=== PATIENT | female | born 1960 | race Caucasian/White ===

== ENCOUNTER → 2017-05-29 08:12 | Outpatient (CLI) | payer OTHER, SELFPAY ==
--- NOTE | 2017-05-29 08:20 | RAD_ITS ---
STUDY: X-RAY - ESOPHAGUS (BARIUM SWALLOW) WITH FLUOROSCOPY REASON FOR EXAM: Female, 56 years old. Dysphasia. TECHNIQUE: 14 view(s) of the esophagus were obtained following swallowing of barium. FLUOROSCOPY TIME (if supplied): (0:37) minutes/seconds COMPARISON: None. FINDINGS: There is no demonstrated esophageal foreign body. There is no demonstrated stricture or mucosal abnormality. Normal gastroesophageal junction, without a demonstrated hiatal hernia. The patient ingested a 12 mm tablet of barium without any difficulty. Normal visualized aortic arch and descending thoracic aorta. Normal visualized pulmonary parenchyma. Normal visualized osseous structures of the thorax. RAD/Esophagus Only IMPRESSION: Normal plain film x-ray examination (barium swallow) of the esophagus. Electronically Signed: Aiden Arriaga MD at 9:05 EDT Tel [phone], Service support ,
== END ==
PROVIDERS: Family Provider Student in an Organized Health Care Education/Training Program; PCP Student in an Organized Health Care Education/Training Program; Visit Provider Internal Medicine Gastroenterology
DX: R13.14 Dysphagia, pharyngoesophageal phase (principal)
CPT/HCPCS: 74220

== ENCOUNTER → 2017-05-30 12:53 | Outpatient (CLI) | payer OTHER, SELFPAY ==
--- NOTE | 2017-05-30 12:55 | RAD_ITS ---
STUDY: SWALLOWING STUDY REASON FOR EXAM: Female, 56 years old. Dysphagia. TECHNIQUE: The examination was performed with Speech Pathology in attendance. Under fluoroscopic observation, the patient ingested thin barium, thick barium, barium pudding, and barium coated cracker. FLUOROSCOPY TIME: 1:25 minutes/seconds. 1261 spot images were obtained. RADIOLOGIST INVOLVEMENT: Radiologist was present and providing direct supervision. COMPARISON: None. FINDINGS: The following was observed during swallowing of the various mixtures of barium: Thin Barium: There was no evidence of aspiration or laryngeal penetration. Barium Pudding: There was no evidence of aspiration or laryngeal penetration. Barium Coated Cracker: There was no evidence of aspiration or laryngeal penetration. RAD/Swallowing Function w/Video IMPRESSION: Normal tailored barium swallow study. No evidence of increased risk for aspiration. The swallow study findings were discussed with the patient by the speech pathologist at the conclusion of the examination. Please see speech pathology report for more information and recommendations. Electronically Signed: Aiden Arriaga MD at 14:00 EDT Tel [phone], Service support ,
--- NOTE | 2017-05-30 13:00 | SP.MBSS_ITS ---
PRIMARY / SECONDARY DIAGNOSIS: dysphagia (R13.10) REFERRING PHYSICIAN: Dr. Ko Alvarez MD CURRENT DIET: regular textures, thin liquids DENTITION: WFL MENTAL STATUS: WNL RESPIRATORY STATUS: O2 via room air PREVIOUS MODIFIED BARIUM SWALLOW STUDY: none REASON FOR REFERRAL: Patient is a 56 year old female referred for a modified barium swallow (MBS) study to objectively assess the Patients oropharyngeal swallow function under fluoroscopy secondary to reported coughing episodes occurring 6 times across a 2 year span, with the Patient reporting occurrences primarily during intake of thin liquids with larger bolus volumes and limited attention, in addition to concerns regarding vapors as an exacerbating factor (examples provided included Jelly on a spoon, Root Beer, Dr. Suárez). Patient reports recent endoscopy completed with no abnormalities reported. Patient reports use of C-pap (for a long time), reports the back of throat has become intermittently irritated over last year, reports additional workup with CHECK EXAMINER-C. 05/29/2017 barium swallow study revealed a normal plain film x-ray examination (barium swallow) of the esophagus. MEDICAL HISTORY: Esophageal reflux, allergic rhinitis, hyperlipidemia, brachial neuritis or radiculitis, panic attacks, depressive disorder, metatarsalgia, sleep apnea, morbid obesity, type II diabetes mellitus, gait difficulty. STUDY FINDINGS: Patient participated in a Modified Barium Swallow (MBS) study on 05/30/2017. Dr. Arriaga was the radiologist present for this evaluation. This study was recorded in the lateral view and images were sent to PACs for storage. The following consistencies were presented to this patient for analysis of oropharyngeal swallow function: thin liquids, pudding, and a regular textured, Gela Doone cookie. Results of the MBS are as follows: PENETRATION / ASPIRATION SCALE (NAJERA): 1 = does not enter airway 2 = enters airway/above vocal folds/ejected 3 = enters airway/above vocal folds/not ejected 4 = enters airway/contacts vocal folds/ejected 5 = enters airway/contacts vocal folds/not ejected 6 = enters airway/below vocal folds/ejected 7 = enters airway/below vocal folds/not ejected despite effort 8 = enters airway/below vocal folds/no effort PENETRATION / ASPIRATION SCALE (SCORE): Thin liquids via cup (sequential swallows): 1 Thin liquids via cup (sequential swallows): 1 Thin liquids via straw (single sip): 1 Thin liquids via straw (single sip): 1 Thin liquids via straw (sequential swallows): 1 Pudding via spoon: 1 Regular textured cookie: 1 IMPRESSION: DIAGNOSIS: swallow function grossly within functional limits ORAL PHASE CHARACTERIZED BY: LABIAL SEAL: no labial escape TONGUE CONTROL DURING BOLUS MANIPULATION: cohesive bolus between tongue to palatal seal BOLUS PREPARATION / MASTICATION: timely and efficient chewing and mashing BOLUS TRANSPORT / LINGUAL MOTION: brisk tongue motion ORAL RESIDUE: intermittent trace residue lining oral structures PHARYNGEAL PHASE CHARACTERIZED BY: INITIATION OF PHARYNGEAL SWALLOW: bolus head in valleculae at first hyoid excursion SOFT PALATE ELEVATION: no bolus between soft palate and pharyngeal wall LARYNGEAL ELEVATION: complete superior movement of thyroid cartilage with complete approximation of arytenoids cartilage to epiglottic petiole ANTERIOR HYOID EXCURSION: complete anterior movement EPIGLOTTIC MOVEMENT: complete epiglottic inversion LARYNGEAL VESTIBULE CLOSURE AT HEIGHT OF SWALLOW: complete laryngeal vestibule closure with no air/contrast in laryngeal vestibule PHARYNGEAL STRIPPING WAVE: pharyngeal stripping wave present / complete PHARYNGOESOPHAGEAL SEGMENT OPENING: complete distension and complete duration with no obstruction of flow TONGUE BASE RETRACTION: no contrast between tongue base and posterior pharyngeal wall PHARYNGEAL RESIDUE: intermittent trace residue within or on pharyngeal structures ESOPHAGEAL PHASE CHARACTERIZED BY: ESOPHAGEAL BOLUS CLEARANCE IN THE UPRIGHT POSITION: could not view DIET TEXTURE RECOMMENDATIONS: Will recommend a regular textured, thin liquid diet. COMPENSATORY STRATEGIES RECOMMENDED: Reduced bolus volume, seated upright at 90 degrees during PO intake, remain upright for 30-60 minutes post meal (GERD precaution) INTERPRETATION OF RESULTS: The Patient presents with mastication and deglutition abilities found to be grossly within normal limits. Would consider issues with PO intolerance described by the Patient to be transient in nature, associated with volume overload, with no systemic dysphagia suspected based on objective results and reports provided by the Patient. RECOMMENDATIONS: Patient able to comprehend and express recommended intake precautions detailed above with sufficient detail to suggest high likelihood of compliance. Provided brief overview of signs and symptoms of aspiration, with recommendations for the Patient to further discuss symptoms with PCP. No further skilled speech- language services warranted at this time targeting dysphagia. ADDITIONAL COMMENTS/RECOMMENDATIONS: Results and recommendations were discussed with the Patient immediately following MBS completion, with the Patient verbalizing understanding and agreement with all recommendations and education provided. IMAGE COUNT: 1261 G-CODES: SWALLOWING G8996 Current Status: CH SWALLOWING G8997 Goal Status: CH SWALLOWING G8998 Discharge Status: CH
== END ==
PROVIDERS: Family Provider Student in an Organized Health Care Education/Training Program; PCP Student in an Organized Health Care Education/Training Program; Visit Provider Internal Medicine Gastroenterology
DX: R13.14 Dysphagia, pharyngoesophageal phase (principal)
CPT/HCPCS: 74230; 92611

== ENCOUNTER → 2018-10-02 07:40 | Outpatient (CLI) | payer OTHER, SELFPAY ==
--- NOTE | 2018-10-02 07:44 | BI_ITS ---
MAMMOGRAPHY - BILATERAL SCREENING REASON FOR EXAM: Female, 58 years old. Routine annual screening examination. PERTINENT HISTORY: Non-contributory. TECHNIQUE: Digital bilateral breast syeda (3D mammographic acquisition) in the CC and MLO projections. 2-D mediolateral oblique (MLO) and craniocaudad (CC) views of both breasts were obtained. CAD: Full Field Digital Mammography with Computer Added Detection was performed. COMPARISON: Comparison is made with prior study dated August 01, 2016 and July 06, 2015. FINDINGS: Breast Composition: The breasts are heterogeneously dense, which may obscure small masses. There are no dominant masses or suspicious calcifications. No other significant abnormalities are identified. There has been no significant change since the prior study. BI/SCREEN MAMM (CAD) W/SYEDA BILAT IMPRESSION: Stable bilateral screening mammogram. Yearly follow-up mammogram recommended. (A) ASSESSMENT CATEGORY: BIRADS Category 1: Negative. A letter regarding these results will be sent to the patient by the facility within 30 days. Approximately 10% of breast cancers are not detected by mammography. A normal mammogram should not delay biopsy of a clinically suspicious abnormality. [id number] Electronically Signed: Aiden Arriaga, at 8:56 EDT , Service support ,
== END ==
PROVIDERS: Family Provider Student in an Organized Health Care Education/Training Program; PCP Student in an Organized Health Care Education/Training Program; Referring Provider Student in an Organized Health Care Education/Training Program; Visit Provider Student in an Organized Health Care Education/Training Program
DX: Z12.31 Encounter for screening mammogram for malignant neoplasm of breast (principal)
CPT/HCPCS: 77063; 77067

== ENCOUNTER 2022-05-04 09:41 | Emergency (ER) | payer OTHER, SELFPAY ==
[2022-05-04 09:42] VITALS: BP 151/68; PULSE 74; RESP 18; TEMP 36.6; O2SAT 98; BMI 35.7
--- NOTE | 2022-05-04 10:05 | RAD_ITS ---
STUDY: X-RAY - LEFT TIBIA AND FIBULA REASON FOR EXAM: Female, 61 years old. Trauma TECHNIQUE: 5 view(s) of the tibia and fibula were obtained. COMPARISON: None. FINDINGS: A small acute oblique fracture is present across the proximal one third aspect of the fibular shaft with mild displacement. The remaining aspects of the fibula are normal. There is an acute transverse fracture through the origin of the medial malleolus with mild displacement and overlying soft tissue swelling as well. The remaining aspects of the tibia up to the knee joint are normal. RAD/Tibia & Fibula 2 Views IMPRESSION: 1. Acute oblique fracture of the proximal one third fibula 2. Acute medial malleolus fracture Electronically Signed: Nimesh Garcia MD at 10:40 EDT ,
--- NOTE | 2022-05-04 10:06 | ED.VIS.LOWEX ---
HPI History of Present Illness Chief Complaint: Lower Extremity Injury Narrative Narrative: Patient presents with left leg pain after falling last morning. Happened 24 hours ago. She slipped on snow. Her left foot went under her. She has pain at the distal right medial ankle area. There is a little bit at the proximal fibula though. Nothing above that. No anticoagulation. Never hit head. Feels better in a splint and worse if she moves it. PFSH PFSH Home Medications citalopram 20 mg tablet 40 mg PO DAILY 12/31/12 [History Last Taken Unknown] multivitamin,hz-abqc-xatcyqtk 27 mg-0.4 mg tablet (Therems-M) 1 tab PO DAILY 12/31/12 [History Last Taken Unknown] omega-3 fatty acids 500 mg capsule (Fish Oil) 1,000 mg PO DAILY 12/31/12 [History Last Taken Unknown] simvastatin 20 mg tablet 40 mg PO QHS 12/31/12 [History Last Taken Unknown] Lactobacil rhamnosus GG 10 billion cell-inulin 200 mg sprinkle capsule ([facility]) 1 ea PO DAILY 10/19/16 [History Last Taken Unknown] bupropion HCl 100 mg tablet 100 mg PO DAILY 10/19/16 [History Last Taken Unknown] metformin 500 mg tablet 500 mg PO DAILY 10/19/16 [History Last Taken Unknown] sulfamethoxazole 800 mg-trimethoprim 160 mg tablet (Bactrim DS) 1 ea PO BID 10/19/16 [History Last Taken Unknown] vitamin B complex 1 ea PO DAILY 10/19/16 [History Last Taken Unknown] oxycodone-acetaminophen 5 mg-325 mg tablet 1 tab PO Q6H PRN PRN Pain 3 days #12 TABLETS 05/04/22 [Rx Last Taken Unknown] Allergy/AdvReac Type Severity Reaction Status Date / Time adhesive AdvReac Rash Verified 05/04/22 09:44 aspirin AdvReac Nausea/Vom/ Verified 05/04/22 09:44 Diarrhea ciprofloxacin [From Cipro] AdvReac Other Verified 05/04/22 09:44 latex AdvReac Rash Verified 05/04/22 09:44 Penicillins AdvReac Diarrhea Verified 05/04/22 09:44 Social History Smoking Status: Current every day smoker tobacco type: cigarettes ROS ROS ED Cardiovascular Cardiovascular: Denies chest pain or palpitations Respiratory/Chest Respiratory/Chest: Denies dyspnea Gastrointestinal Gastrointestinal: Denies nausea or vomiting Musculoskeletal Musculoskeletal: Reports arthralgias; Denies back pain Integumentary Denies abscess, Abrasions or rash Neurologic Neurologic: Denies paresthesias or weakness Hematologic/Lymphatic Hematologic/Lymphatic: Denies easy bleeding or easy bruising EXAM Physical Exam Narrative Exam Narrative: Patient awake alert nontoxic laying in bed no acute distress. No facial trauma Neck is freely mobile Cardiorespiratory shows easy unlabored breathing Extremities show a little bit of bruising and swelling at the medial aspect of the left ankle. There is tenderness there. Achilles is intact by palpation and Kilpatrick test. No lateral malleolar tenderness. No fifth metatarsal or foot tenderness. She does have some slight tenderness up near the mid to proximal third of the fibula laterally. But no bruising it is visible here. Const Vital Signs: 05/04/22 09:42 05/04/22 13:36 Temperature 97.9 F Temperature Source Temporal Pulse Rate 74 67 Respiratory Rate 18 16 Blood Pressure 151/68 H 150/64 H Blood Pressure Mean 95 Pulse Ox 98 96 Oxygen Delivery Method Room Air MDM MDM MDM Narrative Medical decision making narrative: My independent interpretation of the patient's ankle x-ray and tib-fib are consistent with a Maisonneuve fracture. This is overall consistent with the final reading. I discussed the case with Dr. Beasley. He looked at the films to. He will see the patient tomorrow morning in the office. We will place her in a posterior splint with sugar-tong. Procedure: New line lower extremity splint: We placed the patient in a posterior and sugar-tong splint. We her ankle at 90 degrees. She tolerated this well. We let this rest and harden. She had good pulses and capillary refill afterwards. Radiography Diagnostic Testing: Clinical Impression(s) from Imaging Studies Tibia/Fibula X-Ray 05/04/22 10:05 IMPRESSION: 1. Acute oblique fracture of the proximal one third fibula 2. Acute medial malleolus fracture Electronically Signed: Nimesh Garcia MD at 10:40 EDT Reading Location ID and State: [facility] / [place] , Service support , Ankle X-Ray 05/04/22 10:20 IMPRESSION: 1. Acute medial malleolus fracture and soft tissue swelling 2. Posterior tibial malleolus minimally displaced cortical fracture Electronically Signed: Nimesh Garcia MD at 10:53 EDT , Discharge Plan Triage Chief Complaint: Lower Extremity Injury ED Provider: Bryan Anderson Dx/Rx/DC Orders Clinical Impression: Fall due to ice or snow, Closed Maisonneuve fracture Instructions: ED Fracture, Lower Extremity Prescriptions: New oxycodone-acetaminophen [oxycodone-acetaminophen] 5-325 mg tablet 1 tab PO Q6H PRN PRN (Reason: Pain) 3 Days Qty: 12 0RF No Action citalopram 20 MG tablet 40 mg PO DAILY simvastatin 20 MG tablet 40 mg PO QHS multivitamin,zy-bosg-wnwmgjca [Therems-M] 1 TABLET tablet 1 tab PO DAILY omega-3 fatty acids [Fish Oil] 500 MG capsule 1,000 mg PO DAILY sulfamethoxazole-trimethoprim [Bactrim DS] 1 EACH tablet 1 ea PO BID bupropion HCl 100 MG tablet 100 mg PO DAILY vitamin B complex 1 EACH capsule 1 ea PO DAILY Lactobac. rhamnosus GG-inulin [[facility]] 1 EACH capsule, sprinkle 1 ea PO DAILY metformin 500 MG tablet 500 mg PO DAILY Primary Care Provider: Gaurav Trevino Referrals: Rj Beasley DO [Med Staff - Active Staff] - 1 Day (Call office today for appointment. Plan is to see you tomorrow morning.) Gaurav Trevino DO [Primary Care Provider] - Activity Restrictions/Additional Instructions: Keep your leg elevated above the heart is much as possible to decrease swelling. Disposition Disposition: Home, Self Care Discharge Date/Time: 05/04/22 13:45
--- NOTE | 2022-05-04 10:20 | RAD_ITS ---
STUDY: X-RAY - LEFT ANKLE REASON FOR EXAM: Female, 61 years old. INJURY TECHNIQUE: 3 view(s) of the ankle. COMPARISON: X-ray of the left tibia and fibula on the same day FINDINGS: An acute horizontal fracture is present across the origin of the medial malleolus with mild to moderate displacement of the distal fracture fragment and moderate overlying soft tissue swelling. There is a second small cortical minimally displaced fracture of the posterior tibial malleolus. Normal distal fibula. Normal lateral malleolus. Normal tibiotalar articulation and ankle mortise. Normal visualized talus and calcaneus. Small plantar calcaneal spur noted. The visualized subtalar, talonavicular, calcaneocuboid and tarsal articulations are normal. RAD/Ankle min 3 Views IMPRESSION: 1. Acute medial malleolus fracture and soft tissue swelling 2. Posterior tibial malleolus minimally displaced cortical fracture Electronically Signed: Nimesh Garcia MD at 10:53 EDT ,
[2022-05-04 13:36] VITALS: BP 150/64; PULSE 67; RESP 16; O2SAT 96
== END 2022-05-04 13:45 | disposition home or self-care (01) ==
PROVIDERS: Emergency Provider Emergency Medicine; PCP Student in an Organized Health Care Education/Training Program; Visit Provider Emergency Medicine
DX: S82.862A Displaced Maisonneuve's fracture of left leg, initial encounter for closed fracture (principal); F17.210 Nicotine dependence, cigarettes, uncomplicated; W00.9XXA Unspecified fall due to ice and snow, initial encounter
CPT/HCPCS: 29515; 73590; 73610; 99282

== ENCOUNTER 2022-05-09 10:49 | Day surgery (SDC) | payer OTHER, SELFPAY ==
--- NOTE | 2022-05-08 09:01 | EKG12_ITS ---
Test Reason : PREOP Blood Pressure : / mmHG Vent. Rate : 064 BPM Atrial Rate : 064 BPM P-R Int : 164 ms QRS Dur : 090 ms QT Int : 378 ms P-R-T Axes : 061 058 060 degrees QTc Int : 389 ms Normal sinus rhythm Normal ECG Confirmed by MALINI ALLEN, NELY ([id number]), scientific editor LAYNE ROSAS ([id number]) on 05/08/2022 12:48:20 PM Referred By: Rj Beasley Confirmed By:NELY NAYAK MD
[2022-05-08 09:47] LABS: Hematocrit 43.2 % (37-47); Hemoglobin 14.1 g/dL (12.0-15.0); Mean Corp Hgb Conc 32.6 g/dL (32-36); Mean Corpuscular Hgb 30.7 pg (27.0-32.0); Mean Corpuscular Volume 94.1 fL (81-99); Platelet Count 238 K/mm3 (150-450); RBC Distribution Width CV 12.5 % (11.6-14.6); RBC Distribution Width SD 42.9 fl (35.1-43.9); Red Blood Count 4.59 M/mm3 (4.2-5.4); White Blood Count 6.3 K/mm3 (4.4-11.0)
[2022-05-08 10:18] LABS: Hemoglobin A1c 6.4 % (3.8-5.6)
[2022-05-08 10:30] LABS: Anion Gap 8 (5-15); BUN 20 mg/dL (7-18); BUN/Creat Ratio 29.5 RATIO (10-20); Calcium,Total 9.2 mg/dL (8.5-10.1); Chloride 107 mmol/L (98-107); Creatinine, Serum 0.68 mg/dL (0.55-1.02); EST Glomerular Filtration Rate 93 mL/min (>60); Est Glom Filt Rate - Afr Amer 113 mL/min (>60); Glucose 124 mg/dL (74-106); Potassium 4.3 mmol/L (3.5-5.1); Sodium Level 139 mmol/L (136-145)
[2022-05-09] VITALS (8 sets, daily range): BP systolic 126–152; BP diastolic 55–93; PULSE 78–100; RESP 12–18; TEMP 36.1–36.5; O2SAT 93–99; BMI 35.7
[2022-05-09] MEDS: Lactated Ringers 1,000 ML 15 ML IV ×2 (11:27→15:14)
--- NOTE | 2022-05-09 11:27 | PCM.HP.BLA ---
History and Physical Date of Admission: 05/09/22 [facility] [address] [place] [address] OFFICE VISIT Date of Service:? 05/05/22 MR#: [id number] Acct: [id number] Name:WILLIAM NAQVI Rep #: [id number] : 1960 ? ? Provider: Dr. Rj Beasley, DO Age/Sex:? 61/F ? ? Location: [facility] Status: Signed Intake Vital Signs ? 05/04/2308:42 Height 5 ft 5 in Weight: 215 lb BMI 35.7 BP 151/68 H Respiration 18 Pulse 74 Temp 97.9 F Temp Source Temporal Pulse Oximetry (%) 98 Intake Visit Reasons:?LEFT ANKLE Accompanied by: Is patient in pain?: Yes Pain scale (1-10): 5 Allergies adhesive Adverse Reaction (Verified 05/04/22 09:44) Rashaspirin Adverse Reaction (Verified 05/04/22 09:44) Nausea/Vom/Diarrheaciprofloxacin [From Cipro] Adverse Reaction (Verified 05/04/22 09:44) Otherlatex Adverse Reaction (Verified 05/04/22 09:44) RashPenicillins Adverse Reaction (Verified 05/04/22 09:44) Diarrhea Medications citalopram 20 mg tablet 40 mg PO DAILY 12/31/12 [History Confirmed 05/05/22] multivitamin,pb-zzgs-rishpldw 27 mg-0.4 mg tablet (Therems-M) 1 tab PO DAILY 12/31/12 [History Confirmed 05/05/22] omega-3 fatty acids 500 mg capsule (Fish Oil) 1,000 mg PO DAILY 12/31/12 [History Confirmed 05/05/22] simvastatin 20 mg tablet 40 mg PO QHS 12/31/12 [History Confirmed 05/05/22] metformin 500 mg tablet 500 mg PO DAILY 10/19/16 [History Confirmed 05/05/22] oxycodone-acetaminophen 5 mg-325 mg tablet 1 tab PO Q6H PRN PRN Pain 3 days #12 TABLETS 05/04/22 [Rx Confirmed 05/05/22] empagliflozin 10 mg tablet (Jardiance) tablet PO 05/05/22 [History Confirmed 05/05/22] oxaprozin 600 mg tablet 600 mg PO 05/05/22 [History Confirmed 05/05/22] tizanidine 2 mg tablet tablet PO 05/05/22 [History Confirmed 05/05/22] tramadol 50 mg tablet 50 - 100 mg PO Q8H PRN pain #24 tabs 05/05/22 [Rx Confirmed 05/05/22] PFSH Medical History?(Updated 05/05/22 @ 10:[address] Rj Beasley, ) History of lipoma Social History?(Updated 05/05/22 @ 09:27 by Meg Gonzalez) Smoking Status:? Current every day smoker tobacco type: cigars per week: 1 alcohol intake:? current alcohol intake frequency: a few times a month HPI LEFT ANKLE Details: Parts of this documentation were recorded by a scribe, this documentation accurately reflects the service provided and the decisions made by me, Dr. Rj Beasley, 05/05/22 0919. WILLIAM RAMIREZ is a 61 year old diabetic F here today for? left ankle fx. DOI: 05/03/2022. She states that she was feeding the bird and there was snow and she slipped with her left foot back behind her. She thought it was a sprain so she iced and elevated Sunday and then went to the ED 05/04/2022. She was placed into the posterior splint. She has been NWB since yesterday.? She did have a Lipoma removed from the left ankle years ago and subsequently developed an infection which required additional surgery.? She has developed neuroma and neuropathic pain sensations on her ankle from this.? She denies any other trauma to the foot or ankle. Ortho Exam General General: Yes no acute distress Neurologic: Yes alert and Yes oriented x3 Psychologic: Yes reasonable and appropriate Left Foot/Ankle Skin: Yes Ecchymosis and Soft Tissue Swelling; No Erythema Exam: Yes Ecchymosis, Soft tissue swelling, tender to palpate - over fracture site and TTP Medial Malleolus; No Erythema Tests: Squeeze Test: 2 Pulses: Dorsalis Pedis: 2 and Posterior Tibial: 2 ANKLE: curvey linear incision just distal to fibula no s/sx of infection medial ecchymosis, she is missing her great toe nail.? Decree sensation to light touch dorsum of foot and lateral ankle Head: Normocephalic Atraumatic Chest: symmetrical rise, non-labored breathing, no audible wheeze Abdomen: no guarding, non-rigid Supplemental Info ? Coding Level of Care Code Off vis,new,level 3 Diagnoses Syndesmotic disruption of left ankle? S93.432A Closed Maisonneuve fracture? S82.863A Fractured medial malleolus? S82.53XA Fracture, posterior malleolus? S82.399A Assessment and Plan Assessment and Plan (1) Syndesmotic disruption of left ankle: ?Status:?Acute (2) Closed Maisonneuve fracture: ?Status:?Acute (3) Fractured medial malleolus: ?Status:?Acute (4) Fracture, posterior malleolus: ?Status:?Acute ? ? ? Medications: New tramadol 50 - 100 mg (1 - 2 x 50 mg) PO Q8H PRN 24 tabs 0RF pain ? ? Plan Personally reviewed patients xrays of the left ankle. Educated that she has a displaced medial malleolus fracture as well as a Maisonneuve fracture with syndesmotic disruption and a nondisplaced posterior malleolus fracture small , educated that surgery is recommended for a syndesmotic repair of the ankle with ORIF medial malleolus. She will be NWB for about 8-12 weeks post op. She will be in a boot as well.??Reviewed the pre-operative plans with the patient.? She has had increased risk of infection secondary to her diabetes previous ankle surgery previous ankle infection, she also has neuropathic symptoms on her lateral ankle from her previous surgery which can be exacerbated. Risks and benefits of the procedure were fully explained, including but not limited to infection, neurovascular injury, particularly superficial peroneal and saphenous nerves, continued pain, arthritis, stiffness, hardware failure, need for further surgery, re-injury, DVT, PE, general risks of anesthesia, and loss of limb or life, extended postoperative course secondary to syndesmotic injury and diabetes. The patient understands all the risks and does wish to proceed with written consent. Encouraged to ice and elevate over the weekend to get the swelling down. She needs to stop the Oxaprozin now and do not take any Ibuprofen or Aleve prior to surgery.? She may continue with Tylenol 1000 mg 4 times a day in addition she is requesting something stronger I will prescribe some tramadol for her preoperatively , the plan is to put her on the surgery schedule for Sunday05/09/22. In 12/2021 her A1C was 6.6. ? Follow up 2 weeks post op or sooner if pain, swelling, numbness or associated symptoms, or concerns develop.? All questions answered. Patient in agreement of plan. 05/05/22 1013 <Electronically signed by Rj Beasley DO> Date Rj Beasley DO Cosigner Signature: Date (if applicable) ?I have examined the patient and the H&P has been reviewed. There are no clinical changes since date of exam.
[2022-05-09] MEDS: Cefazolin 2 GM in 0.9% Normal Saline 100 ML IV (12:10)
--- NOTE | 2022-05-09 12:20 | RAD_ITS ---
STUDY: X-RAY - LEFT ANKLE REASON FOR EXAM: Female, 61 years old. Fracture. TECHNIQUE: 6 intraoperative view(s) of the ankle. 106.8 seconds of fluoroscopy. 3.44 mGy exposure. COMPARISON: Ankle, May 04, 2022. FINDINGS: The provided images demonstrate placement of fixation screws through the medial malleolus and distal tibia. The fracture fragments in normal alignment. Subsequent images demonstrate fusion of the inferior tibial fibular joint. The ankle appears in normal alignment. There is a small bony fragment seen along the anterior aspect of the distal tibia on the later lateral views. Please refer to the operative report for further details. RAD/Ankle 2 Views IMPRESSION: Internal fixation of a left ankle fracture in the OR. Electronically Signed: Terell Bullock DO at 16:37 EDT ,
[2022-05-09 12:25] LABS: Bedside Glucose 114 mg/dL (74-106)
--- NOTE | 2022-05-09 14:32 | PCM.OP.BLANK ---
Operative Report Date of Procedure: 05/09/22 Preoperative diagnosis: Left displaced medial malleolus fracture with Maisonneuve fracture fibula syndesmotic disruption Postoperative diagnosis: Same Procedure: ORIF medial malleolus with 2 partially threaded 4 oh cancellous screws x40 mm syndesmotic repair with lateral plate and 2 tight ropes Implant: Arthrex Anesthesia: General EBL: 50 Complications: None Time 60 minutes Condition: stable to PACU Indication for procedure: 61-year-old female patient status post ground-level fall within external rotation ankle injury she did this sustain a displaced medial malleolus fracture as well as a syndesmotic disruption with Maisonneuve fracture as well as a minimally displaced small posterior malleolus fracture , she is diabetic and did have previous lateral ankle surgery for lipoma and had subsequent infection years ago but has been well ever since , due to the fracture pattern we did discuss ORIF medial malleolus with syndesmotic repair , posterior malleolus was not felt to be need fixation as it was small and minimally displaced [We did discuss thoroughly risk benefits and alternatives of surgery versus nonsurgical intervention including risk of bleeding infection nerve artery tissue damage need for further surgery, hardware prominence and continued pain and expected post operative course. Procedure: Patient was met the preoperative holding area once again the operative extremity was then identified by both patient and physician was marked. Patient was brought back to the operating room on a wheeled cart and transferred to the operative table supine position. Anesthesia was started well-padded tourniquet was placed on the operative upper thigh. The patient was prepped and draped in the usual sterile fashion and a timeout was called to ensure the proper patient procedure and extremity were being contemplated. An Esmarch was used to exsanguinate the extremity and the tourniquet was inflated to 300 mmHg. The fractures were identified under fluoroscopy and marked on the skin a medial malleolus skin incision was made in a curvilinear fashion through the skin dissection was carried down to avoid injury to the saphenous nerve and vein fracture was identified a small drill hole was made in the tibia to allow for [id number] reduction clamp to reduce the medial malleolus. It was mostly a transverse fracture of the shoulder however there was a small cortical avulsion fragment as well, which was free-floating and not providing any stability, so was removed, once the fracture was reduced K wires were inserted under fluoroscopic guidance checked in both AP and lateral projections to ensure no intra-articular penetration we then turned our attention to lateral ankle and made a small direct lateral incision which was carried down through the skin and subcutaneous tissue directly to bone full-thickness flaps were elevated and K wire was inserted at the level of the syndesmosis between the 2 cannulated screws trajectories. We then proceeded to tap the malleolus screws and placed a 40 mm length partially-threaded cancellous screws in place fracture was compressed with then proceeded to drill over the K wire for the syndesmotic tight rope we then placed a tight rope over our lateral plate. We then proceeded to repeat the process for the proximal tight rope however there was some skiving anteriorly on the proximal drill hole which caused the plate to sit slightly more anterior than I hoped however there is still good purchase in the plate was performing what it needed to do and I felt if I made another hole I would disrupt the fibula too much so I decided to leave it there is no sign that it was prominent as it just curved over the anterior side of the fibula. The tight ropes were fastened with tension with handles while the ankle was dorsiflexed to avoid over tightening the syndesmosis. Final fluoroscopic images were taken AP mortise and lateral images and saved to the PACS system all counts were correct the wounds were closed after thorough irrigation with 2-0 Vicryl 3-0 Vicryl 3-0 nylon vertical mattress followed by Xeroform 4 x 4 ABD bulky Jackson dressing stirrup and posterior slab plaster 4 x 12 and an Tera wrap. Patient tolerated the procedure well she was brought back to the recovery room in stable condition.
--- NOTE | 2022-05-09 14:44 | DCINST_ITS ---
Discharge Instructions Activity Weight Bearing Status: No weight bearing (left lower extremity) Dressing / Incision Call your doctor if you observe: Shortness of breath and Chest pain Additional Dressing/Incision Instructions:: Non-weightbearing left lower extremity, elevate leg when not transferring [id number]. Encourage knee range of motion may wiggle toes. Must keep splint on clean and dry. Prescription pain medication was given do not take more than what was what was prescribed narcotic pain medication can be addictive. Should supplement pain medication with OTC ibuprofen 600 mg 3 times a day and OTC Tylenol 1000 mg 4 times a day to minimize narcotic use. Call with any questions or concerns. Follow-up in 2 weeks for wound check suture removal. Follow Up Care Please Follow Up With: Rj Beasley DO When: 2 weeks Test Results: Test results from this visit will be discussed in further detail at your follow- up appointment, if applicable. Discharge Plan Admission Primary Reason for Your Visit: Left ankle surgery Attending Provider: Rj Beasley Primary Care Provider: Gaurav Trevino Discharge Orders/Prescriptions Prescriptions: New oxycodone 5 mg tablet 5 - 10 mg PO Q4H PRN (Reason: pain) 7 Days Qty: 30 0RF cephalexin 500 mg capsule 1,000 mg PO Q8 Qty: 4 0RF Rx Instructions: take 2 tabs at 9:00 pm and 2 tabs after 5 am when you wake up Continued oxaprozin 600 mg tablet 600 mg PO DAILY tizanidine 2 mg tablet 2 mg PO PRN PRN (Reason: Pain) Jardiance 10 mg tablet 10 mg PO DAILY citalopram 20 MG tablet 40 mg PO DAILY simvastatin 20 MG tablet 20 mg PO QHS Therems-M 1 TABLET tablet 1 tab PO DAILY Fish Oil 500 MG capsule 1,000 mg PO DAILY metformin 500 MG tablet 500 mg PO BID oxycodone-acetaminophen 5-325 mg tablet 1 tab PO Q6H PRN PRN (Reason: Pain) 3 Days Qty: 12 0RF loratadine [Claritin] 10 mg Tablet 10 mg PO DAILY multivitamin Capsule 1 cap PO DAILY cholecalciferol (vitamin D3) [Vitamin D3] 50 mcg (2,000 unit) Capsule 50 mcg PO DAILY acetaminophen [Tylenol] 325 mg Capsule 1,000 mg PO DAILY PRN (Reason: Pain) No Action tramadol 50 mg tablet 50 - 100 mg PO Q8H PRN (Reason: pain) Qty: 24 0RF Referrals / Follow Up: Gaurav Trevino DO [Primary Care Provider] - Disposition Discharge Orders: Discharge Patient (Routine); Ordered 05/09/22 Ordered By: Dr. Rj Beasley
[2022-05-09] MEDS: Cefazolin 1 GM/50 ML BAG IV (15:07)
[2022-05-09 15:15] LABS: Bedside Glucose 154 mg/dL (74-106)
== END 2022-05-09 17:13 | disposition home or self-care (01) ==
LOC: SDC 11:00 → AC 11:00
PROVIDERS: Anesthesiology; PCP Student in an Organized Health Care Education/Training Program; Referring Provider Orthopaedic Surgery; Visit Provider Orthopaedic Surgery
PROC: (CPT 27766; principal; 2022-05-09 12:30)
DX: S93.432A Sprain of tibiofibular ligament of left ankle, initial encounter (principal); E11.40 Type 2 diabetes mellitus with diabetic neuropathy, unspecified; Z79.84 Long term (current) use of oral hypoglycemic drugs; S82.863A Displaced Maisonneuve's fracture of unspecified leg, initial encounter for closed fracture; S82.53XA Displaced fracture of medial malleolus of unspecified tibia, initial encounter for closed fracture; S82.399A Other fracture of lower end of unspecified tibia, initial encounter for closed fracture; G47.30 Sleep apnea, unspecified; F17.200 Nicotine dependence, unspecified, uncomplicated; Z99.89 Dependence on other enabling machines and devices
CPT/HCPCS: 27766; 01480; 64445; 36415; 73600; 76000; 80048; 82962; 83036; 85027; 93005; C1713; J7120; J2405